=== PATIENT | male | born 1955 | race Caucasian/White ===

== ENCOUNTER 2017-09-09 18:57 | Emergency (ER) | payer MEDICAID ==
[2017-09-09 19:39] LABS: BASOPHILS % (AUTO) 0.8 %; EOSINOPHILS # (AUTO) 0.1 10^3/uL (0.0-0.7); EOSINOPHILS % (AUTO) 1.3 %; HGB - HEMOGLOBIN 14.2 g/dL (14.0-18.0); LYMPHOCYTES # (AUTO) 0.9 10^3/uL (1.5-3.5); LYMPHOCYTES % (AUTO) 17.9 %; MEAN CORPUSCULAR HEMOGLOBIN 29.5 pg (27.0-31.0); MEAN CORPUSCULAR HGB CONC 33.7 g/dL (32.0-36.0); MEAN CORPUSCULAR VOLUME 87.6 fL (80.0-94.0); MEAN PLATELET VOLUME 7.9 fL (7.4-11.4); MONOCYTES # (AUTO) 1.1 10^3/uL (0.0-1.0); MONOCYTES % (AUTO) 21.5 %; NEUTROPHILS # (AUTO) 2.9 10^3/uL (1.5-6.6); NEUTROPHILS % (AUTO) 58.5 %; PLT - PLATELET COUNT 239 10^3/uL (130-450); RED BLOOD COUNT 4.82 10^6/uL (4.70-6.10); RED CELL DISTRIBUTION WIDTH 13.3 % (12.0-15.0)
[2017-09-09 19:43] LABS: ALBUMIN 3.8 g/dL (3.2-5.5); ALBUMIN/GLOBULIN RATIO 1.2 (1.0-2.2); BILIRUBIN,TOTAL 0.5 mg/dL (0.2-1.0); CALCIUM 9.1 mg/dL (8.5-10.3); TOTAL PROTEIN 7.1 g/dL (6.7-8.2)
[2017-09-09] MEDS ORDERED: SODIUM CHLORIDE 0.9% 1,000 ML IV ONE (20:47)
--- NOTE | 2017-09-09 20:51 | ED Physician Documentation ---
History of Present Illness - Stated complaint Stated Complaint: VOMITING/DIARRHEA - Chief complaint Chief Complaint: Abd Pain - History obtained from History obtained from: Patient, Family - History of Present Illness Timing: How many weeks ago (1) Pain level max: 7 Pain level now: 7 Quality: sharp, cramping Improved by: nothing Worsened by: nothing - Additonal information Additional information: Patient is a 62 yo M who has been ill for a week. States feeling weak. Diarrhea x 3 and vomiting x 2 today. Fevers, chills, sweats at night. Review of Systems Ten Systems: 10 systems reviewed and negative Constitutional: reports: Fever, Chills Nose: reports: Rhinorrhea / runny nose, Congestion Throat: denies: Sore throat Respiratory: reports: Cough (dry) GI: reports: Nausea, Vomiting, Diarrhea Skin: denies: Rash Musculoskeletal: denies: Neck pain, Back pain Neurologic: reports: Generalized weakness. denies: Focal weakness, Numbness, Headache PD PAST MEDICAL HISTORY - Past Medical History Past Medical History: Yes Cardiovascular: Hypertension Neuro: None Psych: Anxiety Musculoskeletal: Osteoarthritis, Chronic back pain - Past Surgical History Past Surgical History: No - Present Medications Home Medications: Ambulatory Orders Medication Instructions Recorded Confirmed Propranolol [Inderal] 40 mg PO .FREQ PRN 10/27/14 05/16/16 Ondansetron Odt [Zofran] 4 mg TL Q6H PRN #10 tablet 09/09/17 - Allergies Allergies/Adverse Reactions: Allergies Allergy/AdvReac Type Severity Reaction Status Date / Time hydrocodone AdvReac Nausea Verified 09/09/17 19:18 - Social History Does the pt smoke?: No Smoking Status: Never smoker Does the pt drink ETOH?: No Does the pt have substance abuse?: No - Immunizations Immunizations are current?: Yes PD ED PE NORMAL - Vitals Vital signs reviewed: Yes - General General: Alert and oriented X 3, No acute distress, Well developed/nourished - HEENT HEENT: PERRL, Ears normal, Moist mucous membranes - Neck Neck: Supple, no meningeal sign - Cardiac Cardiac: RRR, Strong equal pulses - Respiratory Respiratory: No respiratory distress, Clear bilaterally - Abdomen Abdomen: Soft, Non distended, Other (diffuse mild TTP, no peritoneal signs.) - Derm Derm: Warm and dry, No rash - Neuro Neuro: Alert and oriented X 3 - Psych Psych: Normal mood, Normal affect Results - Vitals Vitals: Vital Signs - 24 hr 09/09/17 09/09/17 19:14 23:38 Temperature 36.9 C 36.8 C Heart Rate 77 69 Respiratory 20 16 Rate Blood Pressure 110/64 128/72 O2 Saturation 98 99 Oxygen O2 Source Room air - Labs Labs: Laboratory Tests 09/09/17 09/09/17 09/09/17 19:26 19:26 21:48 WBC 5.0 RBC 4.82 Hgb 14.2 Hct 42.2 MCV 87.6 MCH 29.5 MCHC 33.7 RDW 13.3 Plt Count 239 MPV 7.9 Neut # 2.9 Lymph # 0.9 L [place] # 1.1 H Eos # 0.1 Baso # 0.0 Absolute Nucleated RBC 0.02 Nucleated RBC % 0.4 Sodium 141 Potassium 3.4 L Chloride 108 Carbon Dioxide 24 Anion Gap 9.0 BUN 14 Creatinine 1.0 Estimated GFR (MDRD) 75 L Glucose 95 Calcium 9.1 Total Bilirubin 0.5 AST 19 ALT 17 Alkaline Phosphatase 73 Total Protein 7.1 Albumin 3.8 Globulin 3.3 Albumin/Globulin Ratio 1.2 Lipase 16 L Urine Color Urine Clarity Urine pH Ur Specific [place] Urine Protein Urine Glucose (UA) Urine Ketones Urine Occult Blood Urine Nitrite Urine Bilirubin Urine Urobilinogen Ur Leukocyte Esterase Ur Microscopic Review Urine Culture Comments Influenza A (Rapid) Negative Influenza B (Rapid) Negative Influenza Types A,B Ag - 09/09/17 23:00 WBC RBC Hgb Hct MCV MCH MCHC RDW Plt Count MPV Neut # Lymph # [place] # Eos # Baso # Absolute Nucleated RBC Nucleated RBC % Sodium Potassium Chloride Carbon Dioxide Anion Gap BUN Creatinine Estimated GFR (MDRD) Glucose Calcium Total Bilirubin AST ALT Alkaline Phosphatase Total Protein Albumin Globulin Albumin/Globulin Ratio Lipase Urine Color DARK YELLOW Urine Clarity CLEAR Urine pH 6.0 Ur Specific [place] >=1.030 H Urine Protein NEGATIVE Urine Glucose (UA) NEGATIVE Urine Ketones NEGATIVE Urine Occult Blood NEGATIVE Urine Nitrite NEGATIVE Urine Bilirubin NEGATIVE Urine Urobilinogen 0.2 (NORMAL) Ur Leukocyte Esterase NEGATIVE Ur Microscopic Review NOT INDICATED Urine Culture Comments NOT INDICATED Influenza A (Rapid) Influenza B (Rapid) Influenza Types A,B Ag - Rads (name of study) cxr Radiology: Prelim report reviewed, EMP read contemporaneously, See rad report ( normal) PD MEDICAL DECISION MAKING - ED course Complexity details: reviewed results, re-evaluated patient, considered differential (No diverticulitis, no peritoneal signs, no appendicitis, no bowel obstruction or perforation. No sepsis), d/w patient, d/w family ED course: Patient is a 62-year-old gentleman who presents to the emergency department with what appears to be a viral syndrome. Feels much better after Zofran and is tolerating p.o. without difficulty. Drink approximately a liter of water. There was some difficulty establishing an IV and he did not want IV fluids. Abdomen was soft, nontender nondistended on serial exam. As he is tolerating p.o. well and feeling better, will continue supportive care at home and follow- up closely with his doctor. Patient and family counseled regarding signs and symptoms for which I believe and urgent re-evaluation would be necessary. Patient with good understanding of and agreement to plan and is comfortable going home at this time This document was made in part using voice recognition software. While efforts are made to proofread this document, sound alike and grammatical errors may occur. Departure - Departure Disposition: 01 Home, Self Care Clinical Impression: Viral syndrome, Dehydration Condition: Good Instructions: ED Viral Syndrome Follow-Up: Shayla Jaimes ARNP [Primary Care Provider] - Within 3 Days (for recheck) Prescriptions: Ondansetron Odt [Zofran] 4 mg TL Q6H PRN #10 tablet PRN Reason: Nausea / Vomiting Comments: drink plenty of fluids. Return if you worsen. Discharge Date/Time: 09/09/17 23:51
[2017-09-09] MEDS ORDERED: ONDANSETRON 4 MG/2 ML VIAL IVP STA (20:54)
--- NOTE | 2017-09-09 22:18 | XRAY Report ---
EXAM: CHEST RADIOGRAPHY EXAM DATE: 09/09/2017 09:45 PM. CLINICAL HISTORY: Fever, cough. COMPARISON: 05/16/2016 chest x-ray. TECHNIQUE: 2 views. FINDINGS: Lungs/Pleura: No focal opacities evident. No pleural effusion. No pneumothorax. Normal volumes. Mediastinum: Heart and mediastinal contours are unremarkable. Other: None. IMPRESSION: Normal 2-view chest radiography. [facility] Referring Provider Line: [phone] SITE ID: [id number]
--- NOTE | 2017-09-09 22:18 | XRAY Preliminary Report ---
Exam: XR CHEST 2 VIEW X-RAY IMPRESSION: Normal 2-view chest radiography. [facility] SITE ID: [id number]
[2017-09-09 23:09] LABS: BILIRUBIN,URINE NEGATIVE (NEGATIVE); GLUCOSE, URINE (UA) NEGATIVE (NEGATIVE); KETONES,URINE (UA) NEGATIVE (NEGATIVE); LEUKOCYTE ESTERASE, URINE NEGATIVE (NEGATIVE); NITRITE,URINE NEGATIVE (NEGATIVE); OCCULT BLOOD,URINE NEGATIVE (NEGATIVE); PROTEIN,URINE NEGATIVE (NEGATIVE); UROBILINOGEN,URINE 0.2 (NORMAL) E.U./dL (NORMAL)
[2017-09-09 23:25] LABS: CLARITY,URINE CLEAR (CLEAR)
[2017-09-09 23:39] VITALS: BP 128/72
== END 2017-09-09 23:51 | disposition home or self-care (01) ==
LOC: ED 18:57
DX: B34.9 Viral infection, unspecified (principal); E86.0 Dehydration; I10 Essential (primary) hypertension
CPT/HCPCS: 36415; 71046; 80053; 81001; 81003; 83690; 85025; 87086; 87275; 87276; 96361; 96374; 99283; 99284

== ENCOUNTER 2017-09-24 10:17 | Outpatient (CLI) | payer MEDICAID ==
[2017-09-24 12:54] LABS: BASOPHILS # (AUTO) 0.1 10^3/uL (0.0-0.1); BASOPHILS % (AUTO) 0.8 %; EOSINOPHILS # (AUTO) 0.1 10^3/uL (0.0-0.7); EOSINOPHILS % (AUTO) 1.2 %; HGB - HEMOGLOBIN 13.4 g/dL (14.0-18.0); LYMPHOCYTES # (AUTO) 1.2 10^3/uL (1.5-3.5); LYMPHOCYTES % (AUTO) 18.8 %; MEAN CORPUSCULAR HEMOGLOBIN 29.5 pg (27.0-31.0); MEAN CORPUSCULAR HGB CONC 33.1 g/dL (32.0-36.0); MEAN CORPUSCULAR VOLUME 89.1 fL (80.0-94.0); MEAN PLATELET VOLUME 7.8 fL (7.4-11.4); MONOCYTES # (AUTO) 0.6 10^3/uL (0.0-1.0); MONOCYTES % (AUTO) 10.2 %; NEUTROPHILS # (AUTO) 4.3 10^3/uL (1.5-6.6); PLT - PLATELET COUNT 329 10^3/uL (130-450); RED BLOOD COUNT 4.54 10^6/uL (4.70-6.10); RED CELL DISTRIBUTION WIDTH 13.5 % (12.0-15.0); WHITE BLOOD COUNT 6.3 x10^3/uL (4.8-10.8)
[2017-09-24 13:18] LABS: BUN - BLOOD UREA NITROGEN 13 mg/dL (6-20); CALCIUM 8.8 mg/dL (8.5-10.3); CARBON DIOXIDE - CO2 24 mmol/L (21-32); CHLORIDE 105 mmol/L (101-111); CREATININE 0.9 mg/dL (0.6-1.2); GFR - MDRD 85 (>89); GLUCOSE 74 mg/dL (70-100); SODIUM 137 mmol/L (135-145)
[2017-09-24 13:57] LABS: HB2 TOTAL 14.6 g/dL; HEMOGLOBIN A1C 0.49 g/dL; HEMOGLOBIN A1C % 5.2 % (4.6-6.2)
== END 2017-09-24 10:18 | disposition home or self-care (01) ==
LOC: LAB.N 10:17
PROVIDERS: ATTEND Physician Assistant Medical
DX: K43.9 Ventral hernia without obstruction or gangrene (principal); R61 Generalized hyperhidrosis; R53.83 Other fatigue
CPT/HCPCS: 36415; 80048; 83036; 84403; 84443; 85025

== ENCOUNTER 2017-10-19 09:59 | Outpatient (CLI) | payer MEDICAID | END 2017-10-19 10:00 | disposition home or self-care (01) | LOC: RT 09:59 | PROVIDERS: ATTEND Registered Nurse | DX: Z01.810 Encounter for preprocedural cardiovascular examination (principal) | CPT/HCPCS: 93005 ==

== ENCOUNTER 2017-10-26 09:31 | Day surgery (SDC) | payer MEDICAID ==
[2017-10-26] MEDS ORDERED: LACTATED RINGERS 1,000 ML IV ONE ×2 (10:16→12:26)
[2017-10-26] MEDS ORDERED: ceFAZolin 2 GM/50 ML 2 GM/50 ML BAG IV ONE (10:35)
[2017-10-26] MEDS ORDERED: BUPIVACAINE 0.5%-EPI 1:200000 PF 10 ML VIAL ONE ×2 (10:54→10:55)
[2017-10-26] MEDS ORDERED: BUPIVACAINE 0.5%-EPI 1:200000 PF 30 ML VIAL SUBQ ONE ×2 (12:21)
[2017-10-26] MEDS ORDERED: fentaNYL 100 MCG/2 ML VIAL IVP ONE (12:30)
[2017-10-26] MEDS ORDERED: ACETAMINOPHEN 1,000 MG/100 ML 100 ML IV ONE (12:30)
[2017-10-26] MEDS ORDERED: PROPOFOL 200 MG/20 ML VIAL IVP ONE (12:30)
[2017-10-26] MEDS ORDERED: ePHEDrine 50 MG/ML VIAL IVP ONE (12:30)
[2017-10-26] MEDS ORDERED: MIDAZOLAM 2 MG/2 ML VIAL IVP ONE (12:30)
[2017-10-26] MEDS ORDERED: LIDOCAINE-MPF 2% 5 ML VIAL IM ONE (12:30)
[2017-10-26] MEDS ORDERED: ONDANSETRON 4 MG/2 ML VIAL IVP ONE (12:30)
[2017-10-26] MEDS ORDERED: DEXAMETHASONE 4 MG/ML VIAL IVP ONE (12:30)
[2017-10-26 14:11] VITALS: BP 135/68
--- NOTE | 2017-10-26 19:31 | OPERATIVE REPORT ---
DATE OF SERVICE: 10/26/2017 Physician: Osorio Kelley MD PREOPERATIVE DIAGNOSIS: Incarcerated umbilical hernia. POSTOPERATIVE DIAGNOSIS: Incarcerated umbilical hernia. NAME OF PROCEDURE: Repair of incarcerated umbilical hernia. SURGEON: Osorio Kelley MD ANESTHESIA: General. INDICATIONS FOR PROCEDURE: Patient is a 62-year-old male who presents with a bulge at the umbilical area. On physical exam, he has an incarcerated umbilical hernia. FINDINGS AT SURGERY: The patient had an incarcerated umbilical hernia containing preperitoneal fat. It was repaired primarily as the defect was only 1 cm in size. DESCRIPTION OF PROCEDURE: After informed consent was obtained, patient was taken to the operating room and placed in the supine position. General anesthesia was administered. The patient's skin overlying the hernia was then injected with local anesthesia. The hernia was located in the superior portion of the umbilicus. A vertical incision was then made over the hernia using a scalpel. The hernia contents were then identified. The preperitoneal fat was then dissected from the surrounding structures and reduced back into the abdominal cavity. The subcutaneous tissue was then dissected for over a centimeter circumferentially around the fascial defect. The fascial defect was then closed using interrupted 0 Ethibond sutures. The wound was irrigated and hemostasis was obtained using electrocautery. The subcutaneous tissue was closed using 0 Vicryl suture. The skin incision was closed using 4-0 Monocryl subcuticular stitch. Dermabond was then applied. Patient was then awakened, extubated, and taken from the operating room in stable condition. ESTIMATED BLOOD LOSS: Less than 1 mL. COMPLICATIONS: None. CONDITION OF PATIENT AT END OF PROCEDURE: Stable. SPECIMENS: None. DRAINS AND PACKS: None. CLASSIFICATION OF WOUND: Clean. TD: 10/26/2017 19:30
== END 2017-10-26 09:32 | disposition home or self-care (01) ==
LOC: SDS 09:31
PROVIDERS: ATTEND Surgery
PROC: 0WQF0ZZ Repair Abdominal Wall, Open Approach (ICD-10-PCS; principal; 2017-10-26 10:45)
DX: K42.0 Umbilical hernia with obstruction, without gangrene (principal); R00.8 Other abnormalities of heart beat
CPT/HCPCS: 49587; J0131; J0690; J7120

== ENCOUNTER 2018-01-29 20:11 | Outpatient (CLI) | payer MEDICAID ==
--- NOTE | 2018-01-30 08:19 | Ultrasound Report ---
Procedure Date: 01/29/2018 Accession Number: [id number] / [id number] Procedure: US - Testicle CPT Code: FULL RESULT: EXAM: Testicle DATE: 01/29/2018 8:56 PM CLINICAL HISTORY: RT TESTICULAR PAIN AND SWELLING COMPARISON: None. TECHNIQUE: Real-time scanning was performed with static images obtained, including color-flow. FINDINGS: Right: Testis: 4.5 x 2.8 x 3.3 cm. Normal size and echotexture. No mass, calcification, or abnormal blood flow. Epididymis: 4.1 x 2.3 x 3.9 cm due to a 3.4 x 2.2 x 3.0 cm epididymal cyst. No abnormal blood flow. Hydrocele: None. Varicocele: None. Left: Testis: 4.9 x 2.5 x 2.8 cm. Normal size and echotexture. No mass, calcification, or abnormal blood flow. Epididymis: 0.9 x 1.2 x 1.4 cm containing a cyst measuring 0.5 x 0.5 x 0.5 cm. Normal size and echotexture. No solid mass or abnormal blood flow. Hydrocele: None. Varicocele: None. IMPRESSION: There is a 3.4 cm right epididymal head cyst. Testicles themselves are symmetric with no suspicious mass or evidence of torsion. [facility]
== END 2018-01-29 20:12 | disposition home or self-care (01) ==
LOC: DI 20:11
PROVIDERS: ATTEND Physician Assistant Medical
DX: N50.3 Cyst of epididymis (principal)
CPT/HCPCS: 76870

== ENCOUNTER 2018-02-01 09:28 | Day surgery (SDC) | payer MEDICAID ==
--- NOTE | 2018-02-01 08:22 | ANESTHESIA ---
Pre-Anesthesia VS, & Labs - Diagnosis Epigastric hernia - Procedure Repair incarcerated epigastric hernia Height 5 ft 11 in Body Mass Index 25.7 - NPO >8 hours - Is Patient ?: No Home Medications and Allergies Home Medications: Ambulatory Orders Medication Instructions Recorded Confirmed Propranolol [Inderal] 40 mg PO DAILY 10/27/14 01/31/18 Meloxicam 7.5 mg PO BID 10/26/17 01/31/18 Allergies/Adverse Reactions: Allergies Allergy/AdvReac Type Severity Reaction Status Date / Time oxycodone Allergy Nausea Verified 02/01/18 10:13 sumatriptan Allergy Unknown Verified 02/01/18 10:13 gabapentin AdvReac Unknown Verified 02/01/18 10:13 hydrocodone AdvReac Nausea Verified 02/01/18 10:13 Anes History & Medical History - Anesthetic History Anesthesia Complications: reports: No previous complications Family history of Anesthesia Complications: Denies Family history of Malignant Hyperthermia: Denies - Airway/Dental Dental: WNL Mallampati classification: I Thyromental Distance: greater than 6 cm - Medical History Cardiovascular: reports: Hypertension Pulmonary: reports: None Gastrointestinal: reports: GERD Urinary: reports: None Musculoskeletal: reports: Osteoarthritis, Chronic back pain Endocrine/Autoimmune: reports: None Skin: reports: None Smoking Status: Never smoker Psychosocial: reports: Anxiety - Surgical History General: Other (umbilical hernia repair) Results - EKG Results EKG Comparison: Reviewed EKG Exam General: Alert Respiratory: Lungs clear Cardiovascular: Regular rate Mental/Cognitive Status: Alert/Oriented X3 Cognitive Status: Within normal limits Plan Anesthesia Type: General Consent for Operative Procedure(s) Verified and Reviewed: Yes Code Status: Attempt Resuscitation ASA classification: 2-Mild systemic disease Is this case an emergency?: No
[~2018-02-01 09:28] MED LIST: BUPIVACAINE 0.5%-EPI 1:200000 PF 30 ML VIAL ONE
[2018-02-01] MEDS ORDERED: LACTATED RINGERS 1,000 ML IV ONE ×2 (09:42→13:08)
[2018-02-01] MEDS ORDERED: ceFAZolin 2 GM/50 ML 2 GM/50 ML BAG IV ONE (09:51)
[2018-02-01] MEDS ORDERED: PROPOFOL 200 MG/20 ML VIAL IVP ONE (12:45)
[2018-02-01] MEDS ORDERED: ePHEDrine 50 MG/ML VIAL IVP ONE (12:45)
[2018-02-01] MEDS ORDERED: MIDAZOLAM 2 MG/2 ML VIAL IVP ONE (12:45)
[2018-02-01] MEDS ORDERED: DEXAMETHASONE 4 MG/ML VIAL IVP ONE (12:45)
[2018-02-01] MEDS ORDERED: GLYCOPYRROLATE 1 MG/5 ML VIAL IVP ONE (12:45)
[2018-02-01] MEDS ORDERED: LIDOCAINE-MPF 2% 5 ML VIAL IM ONE (12:45)
[2018-02-01] MEDS ORDERED: fentaNYL 100 MCG/2 ML VIAL IVP ONE (12:45)
[2018-02-01] MEDS ORDERED: ONDANSETRON 4 MG/2 ML VIAL IVP ONE (12:45)
[2018-02-01 15:07] VITALS: BP 128/68
--- NOTE | 2018-02-01 16:43 | OPERATIVE REPORT ---
DATE OF SERVICE: 02/01/2018 Physician: Osorio Kelley MD PREOPERATIVE DIAGNOSIS: Incarcerated epigastric hernia. POSTOPERATIVE DIAGNOSIS: Incarcerated epigastric hernia. PROCEDURE PERFORMED: Repair of incarcerated epigastric hernia with mesh. OPERATING SURGEON: Osorio Kelley MD ANESTHESIA: General. INDICATION FOR SURGERY: Patient is a 62-year-old male who presents with a bulge in the epigastric region. PHYSICAL EXAMINATION: He has an incarcerated epigastric hernia. FINDINGS AT SURGERY: Patient had incarcerated epigastric hernia containing preperitoneal fat. A 4.3 cm Ventralex mesh circular was placed in the preperitoneal space. The hernia defect measured approximately 1.5 cm. DESCRIPTION OF PROCEDURE: After informed consent was obtained, the patient was taken to the operating room and placed in the supine position. General anesthesia was administered. The patient's abdomen was then prepped and draped in the usual sterile fashion. An incision was then made over the hernia that was marked on the skin preoperatively. Incision was then carried down the hernia. This was preperitoneal fat. The preperitoneal fat was then dissected free from the surrounding structures and then amputated at the fascial defect. The fascial defect measured approximately 1.5 cm. The deep peritoneum was then dissected circumferentially around the wound for at least 3 cm. A 4.3 cm Ventralex mesh was then placed in the preperitoneal space. Transfascial fixation sutures using 0 PDS sutures were then placed, connecting the mesh to the anterior abdominal wall. The fascial defect was then closed using interrupted 0 PDS suture. The subcutaneous tissue was closed using 3-0 Vicryl suture. The skin was closed using 4-0 Monocryl subcuticular stitch. Dermabond was then placed upon the incision site. The patient was then awakened, extubated, and taken from the operating room in stable condition. ESTIMATED BLOOD LOSS: Less than 5 mL. COMPLICATIONS: None. CONDITION OF THE PATIENT AT END OF PROCEDURE: Stable. SPECIMENS: None. DRAINS AND PACKS: None. CLASSIFICATION OF WOUND: Clean. TD: 02/01/2018 13:34
== END 2018-02-01 09:29 | disposition home or self-care (01) ==
LOC: SDS 09:28
PROVIDERS: ATTEND Surgery
PROC: 0WUF0JZ Supplement Abdominal Wall with Synthetic Substitute, Open Approach (ICD-10-PCS; principal; 2018-02-01 10:45)
DX: K43.9 Ventral hernia without obstruction or gangrene (principal); N50.3 Cyst of epididymis; K40.90 Unilateral inguinal hernia, without obstruction or gangrene, not specified as recurrent; I10 Essential (primary) hypertension
CPT/HCPCS: 49561; 49568; C1781; J0690; J7120

== ENCOUNTER 2022-11-11 00:02 | Emergency (ER) | payer MEDICARE, MEDICAID ==
[2022-11-11 00:54] LABS: BASOPHILS # (AUTO) 0.1 10^3/uL (0.0-0.1); BASOPHILS % (AUTO) 0.8 %; EOSINOPHILS # (AUTO) 0.1 10^3/uL (0.0-0.7); EOSINOPHILS % (AUTO) 1.6 %; HCT - HEMATOCRIT 44.2 % (42.0-52.0); HGB - HEMOGLOBIN 14.5 g/dL (14.0-18.0); LYMPHOCYTES # (AUTO) 1.7 10^3/uL (1.5-3.5); LYMPHOCYTES % (AUTO) 26.5 %; MEAN CORPUSCULAR HEMOGLOBIN 30.1 pg (27.0-31.0); MEAN CORPUSCULAR HGB CONC 32.8 g/dL (32.0-36.0); MEAN CORPUSCULAR VOLUME 91.7 fL (80.0-94.0); MEAN PLATELET VOLUME 9.1 fL (7.4-11.4); MONOCYTES # (AUTO) 0.8 10^3/uL (0.0-1.0); MONOCYTES % (AUTO) 12.5 %; NEUTROPHILS # (AUTO) 3.6 10^3/uL (1.5-6.6); NEUTROPHILS % (AUTO) 58.3 %; PLT - PLATELET COUNT 225 10^3/uL (130-450); RED BLOOD COUNT 4.82 10^6/uL (4.70-6.10); RED CELL DISTRIBUTION WIDTH 13.2 % (12.0-15.0); WHITE BLOOD COUNT 6.2 x10^3/uL (4.8-10.8)
[2022-11-11 01:10] LABS: ALBUMIN 4.3 g/dL (3.2-5.5); ALBUMIN/GLOBULIN RATIO 1.3 (1.0-2.2); BILIRUBIN,TOTAL 0.9 mg/dL (0.2-1.0); CALCIUM 9.5 mg/dL (8.5-10.3); POTASSIUM 4.3 mmol/L (3.5-5.0); TOTAL PROTEIN 7.7 g/dL (6.7-8.2)
[2022-11-11 01:51] LABS: BILIRUBIN,URINE NEGATIVE (NEGATIVE); GLUCOSE, URINE (UA) NEGATIVE (NEGATIVE); KETONES,URINE (UA) NEGATIVE (NEGATIVE); LEUKOCYTE ESTERASE, URINE NEGATIVE (NEGATIVE); NITRITE,URINE NEGATIVE (NEGATIVE); OCCULT BLOOD,URINE NEGATIVE (NEGATIVE); PROTEIN,URINE NEGATIVE (NEGATIVE); UROBILINOGEN,URINE 0.2 (NORMAL) E.U./dL (NORMAL)
--- NOTE | 2022-11-11 01:52 | ED Physician Documentation ---
PD HPI ABD PAIN - Stated complaint Stated Complaint: ABD PAIN - Chief complaint Chief Complaint: Abd Pain - History obtained from History obtained from: Patient - Additional information Additional information: HPI from patient. Patient c/o LLQ abdominal pain radiating to left flank and left lower back, waxing and waning since gradual onset 1 week ago. There were no inciting factors nor event at onset. Denies fever, denies nausea/vomiting. Denies h/o similar symptoms. He was evaluated in outpatient setting recently for these symptoms and was told EKG was s/o "recent heart attack" (per patient). Review of Systems Constitutional: reports: Reviewed and negative Cardiac: reports: Reviewed and negative Respiratory: reports: Reviewed and negative GI: reports: Abdominal Pain. denies: Abdominal Swelling, Nausea, Vomiting, Constipation, Diarrhea, Hematemesis, Bloody / black stool : denies: Dysuria, Frequency, Hematuria Musculoskeletal: reports: Back pain PD PAST MEDICAL HISTORY - Past Medical History Past Medical History: Yes Cardiovascular: Hypertension Psych: Anxiety Musculoskeletal: Osteoarthritis, Chronic back pain - Past Surgical History Past Surgical History: No General: Other - Present Medications Home Medications: Ambulatory Orders Medication Instructions Recorded Confirmed Propranolol [Inderal] 40 mg PO DAILY 10/27/14 11/11/22 - Allergies Allergies/Adverse Reactions: Allergies Allergy/AdvReac Type Severity Reaction Status Date / Time oxycodone Allergy Nausea Verified 02/01/18 10:13 sumatriptan Allergy Unknown Verified 02/01/18 10:13 gabapentin AdvReac Unknown Verified 02/01/18 10:13 hydrocodone AdvReac Nausea Verified 02/01/18 10:13 - Social History Does the pt smoke?: No Smoking Status: Never smoker Does the pt drink ETOH?: No Does the pt have substance abuse?: No - Immunizations Immunizations are current?: Yes - POLST Patient has POLST: No PD ED PE NORMAL - Vitals Vital signs reviewed: Yes - General General: Alert and oriented X 3, No acute distress, Well developed/nourished - Cardiac Cardiac: RRR, No murmur, No gallop, No rub - Respiratory Respiratory: No respiratory distress, Clear bilaterally - Abdomen Abdomen: Normal bowel sounds, Soft, Non tender, Non distended - Back Back: No CVA TTP - Extremities Extremities: No edema Results - Vitals Vitals: Oxygen O2 Source Room air - EKG (time done) No standard instances EKG releavant findings:: EKG personally interpreted by author of this note. Relevant findings are: Rate: Rate (enter#) (48) Rhythm: Sinus bradycardia [place]: Normal Intervals: Normal ID QRS: Normal Ischemia: Normal ST segments, Q waves (isolated QIII) - Labs Labs: Laboratory Tests 11/11/22 11/11/22 11/11/22 00:50 00:50 01:42 WBC 6.2 RBC 4.82 Hgb 14.5 Hct 44.2 MCV 91.7 MCH 30.1 MCHC 32.8 RDW 13.2 Plt Count 225 MPV 9.1 Neut # (Auto) 3.6 Lymph # (Auto) 1.7 [place] # (Auto) 0.8 Eos # (Auto) 0.1 Baso # (Auto) 0.1 Absolute Nucleated RBC 0.00 Nucleated RBC % 0.0 Sodium 140 Potassium 4.3 Chloride 105 Carbon Dioxide 25 Anion Gap 10.0 BUN 20 Creatinine 1.0 Estimated GFR (MDRD) 74 L Glucose 79 Calcium 9.5 Total Bilirubin 0.9 AST 22 ALT 19 Alkaline Phosphatase 80 Total Protein 7.7 Albumin 4.3 Globulin 3.4 Albumin/Globulin Ratio 1.3 Lipase 50 Urine Color YELLOW Urine Clarity CLEAR Urine pH 6.0 Ur Specific [place] 1.020 Urine Protein NEGATIVE Urine Glucose (UA) NEGATIVE Urine Ketones NEGATIVE Urine Occult Blood NEGATIVE Urine Nitrite NEGATIVE Urine Bilirubin NEGATIVE Urine Urobilinogen 0.2 (NORMAL) Ur Leukocyte Esterase NEGATIVE Ur Microscopic Review NOT INDICATED Urine Culture Comments NOT INDICATED - Rads (name of study) CT A/P Relevant Findings:: Prelim report reviewed, See rad report PD Medical Decision Making - ED course Complexity details: reviewed results, re-evaluated patient, considered differential, d/w patient ED course: No concerning nor diagnostic findings on tonight's tests including blood tests, EKG, CT A/P. Normal CBC, ER abdominal panel, UA. Chronic findings on CT A/P include hepatic cysts, right renal scarring. No significant change or new findings when compared to previous study (2016). Etiology of patient's symptoms is not apparent at this time. Results d/w patient, return precautions discussed. Departure - Departure Disposition: 01 Home, Self Care Clinical Impression: Abdominal pain Qualifiers: Abdominal location: left lower quadrant Qualified Code(s): R10.32 - Left lower quadrant pain Condition: Good Instructions: ED Abdominal Pain Unkn Cause Male Comments: There are no concerning nor diagnostic findings on tonight's test, including the blood test, urinalysis, and the CT scan of your abdomen and pelvis. Cause of your pain is not apparent at this time, but further emergent testing is not indicated (unlikely to reveal or suggested diagnosis). Certainly, if your symptoms worsen in any way, or if you develop new/concerning signs/symptoms (such as fever, blood in the stool, worsening pain, abdominal distention, vomiting), you can return to the emergency department for reevaluation. Otherwise, I recommend that you contact your primary care provider on Sunday when the office opens to arrange for next available appointment. Discharge Date/Time: 11/11/22 05:16
[2022-11-11 01:53] LABS: CLARITY,URINE CLEAR (CLEAR)
[2022-11-11] MEDS ORDERED: iohexoL-300 100 ML VIAL ONE (02:44)
[2022-11-11] MEDS ORDERED: iohexoL-300 100 ML VIAL IVP ONE (03:14)
[2022-11-11 05:16] VITALS: BP 118/78
--- NOTE | 2022-11-11 08:18 | CT Report ---
PROCEDURE: ABDOMEN/PELVIS W INDICATIONS: LUQ pain radiating to back CONTRAST: 100 ML OMNI 300 TECHNIQUE: After the administration of IV contrast, 5 mm thick sections acquired from the diaphragms to the symp hysis. 5 mm thick coronal and sagittal reformats were acquired. For radiation dose reduction, the f ollowing was used: automated exposure control, adjustment of mA and/or kV according to patient size. COMPARISON: CT abdomen and pelvis 05/16/2016 FINDINGS: Image quality: Excellent. Lung bases and heart: Unremarkable. Liver: Scattered hepatic low-attenuation foci unchanged compared to prior exam. Gallbladder and biliary tree: Spleen: No splenomegaly. Pancreas: No pancreatic ductal dilation. Adrenals: No adrenal nodule. Kidneys and ureters: No hydronephrosis. No renal cystic lesion which requires follow up. No solid mas s. Scarring versus postsurgical changes noted along the cortex of the right kidney, unchanged. Asymme tric right renal atrophy is again noted Bowel and peritoneum: No bowel distension. No pathologic free fluid. Moderate colonic stool. Lymph nodes: No central or retroperitoneal adenopathy. Vessels: No infrarenal aortic aneurysm. PELVIS Pelvic organs: No visualized abnormality. Incidental note of the prostate gland is enlarged. Bladder: No abnormal wall thickening, accounting for underdistension. Pelvic lymph nodes: No pelvic adenopathy by size criteria. Bones: No aggressive osseous abnormality. Other: No significant ventral or inguinal hernia. IMPRESSION: No acute intra-abdominal or pelvic process. Constipation without obstruction. Reviewed by: Fiordaliza Shay MD on 11/11/2022 8:16 AM PDT Approved by: Fiordaliza Shay MD on 11/11/2022 8:16 AM PDT Station ID: [id number]
== END 2022-11-11 05:16 | disposition home or self-care (01) ==
LOC: ED 00:02
DX: R10.32 Left lower quadrant pain (principal); I10 Essential (primary) hypertension
CPT/HCPCS: 36415; 74177; 80053; 81003; 83690; 85025; 93005; 99283; 99284; Q9967; 81001; 87086

== ENCOUNTER 2023-11-16 10:36 | Outpatient (CLI) | payer MEDICARE, MEDICAID ==
--- NOTE | 2023-11-16 12:15 | MRI Report ---
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 COMPARISON: Cervical spine plain films dated 08/10/2023. FINDINGS: Image quality: Excellent. Alignment and Curvature: There is normal bony alignment. Bone Marrow: Marrow demonstrates normal overall signal. Spinal Cord: Visualized spinal cord has normal size and signal. No cerebellar tonsillar herniation. Paraspinous Soft Tissues: No paravertebral masses. Prevertebral soft tissues are normal in thicknes s. C2-C3: Mild central posterior disc protrusion abuts the ventral cord. No canal stenosis. AP diameter of the central canal stenosis 12.0 mm. Mild bilateral foraminal stenosis. C3-C4: Mild to moderate broad-based posterior disc protrusion mildly indents on the cord. There is posterior ligamentous hypertrophy. There is moderate central canal stenosis. AP diameter of the centr al canal measures 8.9 mm. Reference axial image 13 of series 4. There is bilateral facet hypertrophy. There is bilateral uncovertebral joint hypertrophy. There is moderate bilateral foraminal narrowing with flattening deformity on the exiting bilateral C4 nerve roots. C4-C5: Diffuse posterior disc bulge with indentation on the ventral cord. Posterior ligamentous hype rtrophy. Moderate canal stenosis. AP diameter of the central canal measures 8.8 mm. Reference axial i mage 19 of series 4. There is bilateral facet hypertrophy. There is moderate to severe bilateral fora michael narrowing with a degree of bilateral foraminal C5 nerve root impingement. C5-C6: Prominent anterior osteophyte is incidentally noted. Posterior disc bulge, eccentric to the r ight with mild indentation on the ventral cord. Mild canal stenosis. AP diameter of the central canal is 9.4 mm. Bilateral uncovertebral joint hypertrophy. Mild right foraminal narrowing. Moderate left foraminal narrowing. There is mild flattening deformity on the exiting left C6 nerve root. C6-C7: Prominent anterior osteophyte noted. Mild disc bulge. No canal stenosis. AP diameter of the c entral canal measures 12.0 mm. No significant foraminal narrowing. C7-T1: No canal stenosis or foraminal stenosis. IMPRESSION: 1. Diffuse cervical spondylitic change. 2. Canal stenosis is moderate at C3-C4 and C4-C5. It is mild at C5-C6. 3. Multilevel foraminal narrowing as described above. Findings include moderate bilateral foraminal n arrowing at C3-C4, moderate to severe bilateral foraminal narrowing at C4-C5, and moderate left shruti inal narrowing at C5-C6. Reviewed by: Raheel Young MD on 11/16/2023 12:14 PM PDT Approved by: Raheel Young MD on 11/16/2023 12:14 PM PDT Station ID: [id number]
== END 2023-11-16 10:37 | disposition home or self-care (01) ==
LOC: DI 10:36
PROVIDERS: ATTEND Internal Medicine
DX: M99.51 Intervertebral disc stenosis of neural canal of cervical region (principal); M47.812 Spondylosis without myelopathy or radiculopathy, cervical region

== ENCOUNTER 2024-01-21 01:23 | Outpatient (CLI) | payer MEDICARE, MEDICAID | END 2024-01-21 23:59 | disposition critical access hospital (66) | LOC: EMS 01:23 | DX: R53.1 Weakness (principal) | CPT/HCPCS: A0425; A0429 ==

== ENCOUNTER 2024-01-21 01:58 | Emergency (ER) | payer MEDICARE, MEDICAID ==
[2024-01-21] MEDS: SODIUM CHLORIDE 0.9% 1,000 ML IV STA (02:20)
[2024-01-21 02:45] LABS: BASOPHILS % (AUTO) 0.6 %; EOSINOPHILS # (AUTO) 0.1 10^3/uL (0.0-0.7); HCT - HEMATOCRIT 39.3 % (42.0-52.0); HGB - HEMOGLOBIN 12.6 g/dL (14.0-18.0); LYMPHOCYTES # (AUTO) 1.2 10^3/uL (1.5-3.5); LYMPHOCYTES % (AUTO) 17.7 %; MEAN CORPUSCULAR HEMOGLOBIN 29.2 pg (27.0-31.0); MEAN CORPUSCULAR HGB CONC 32.1 g/dL (32.0-36.0); MEAN PLATELET VOLUME 9.2 fL (7.4-11.4); MONOCYTES # (AUTO) 0.6 10^3/uL (0.0-1.0); MONOCYTES % (AUTO) 8.6 %; NEUTROPHILS # (AUTO) 4.8 10^3/uL (1.5-6.6); NEUTROPHILS % (AUTO) 71.7 %; PLT - PLATELET COUNT 193 10^3/uL (130-450); RED BLOOD COUNT 4.32 10^6/uL (4.70-6.10); RED CELL DISTRIBUTION WIDTH 13.4 % (12.0-15.0); WHITE BLOOD COUNT 6.7 x10^3/uL (4.8-10.8)
[2024-01-21 02:59] LABS: ALBUMIN 3.7 g/dL (3.2-5.5); ALBUMIN/GLOBULIN RATIO 1.4 (1.0-2.2); BILIRUBIN,TOTAL 0.4 mg/dL (0.2-1.0); CALCIUM 9.2 mg/dL (8.5-10.3); CREATININE 0.9 mg/dL (0.6-1.3); TOTAL PROTEIN 6.4 g/dL (6.4-8.9)
--- NOTE | 2024-01-21 03:04 | ED Physician Documentation ---
History of Present Illness - Stated complaint Stated Complaint: L LEG WEAKNESS - Chief complaint Chief Complaint: Neuro - History obtained from History obtained from: Patient, EMS - Additonal information Additional information: The patient is brought to the emergency department by EMS for chief complaint of "feeling strange". He states he went to bed feeling fine last night but he woke up in the night feeling as though he was in a state of weakness. He states that he thought that perhaps his heart or breathing had stopped so he got up out of bed to go tell his roommate that his heart had stopped. He states that he felt somewhat generally weak but that his left leg felt tingly/numb. The patient was able to ambulate without difficulty and denies any trouble speaking or swallowing. He states that he was sitting on his roommates bed and talking throughout what was going on and she felt that he should come to the hospital. She called EMS and the patient decided that since he has dogs, he would ambulate out to meet the ambulance. The patient states that he went out the door and began walking down his long driveway until EMS pulled in. Medics state that the patient was noted to be walking with a slight limp on the left but did not appear weak. They found no weakness whatsoever on exam. The patient denies recent illnesses. No other complaints at this time. He states he is otherwise fairly healthy. No history of stroke. PD PAST MEDICAL HISTORY - Past Medical History Cardiovascular: Hypertension Psych: Anxiety Musculoskeletal: Osteoarthritis, Chronic back pain - Past Surgical History Past Surgical History: No General: Other - Present Medications Home Medications: Ambulatory Orders Medication Instructions Recorded Confirmed Propranolol [Inderal] 40 mg PO DAILY 10/27/14 01/21/24 - Allergies Allergies/Adverse Reactions: Allergies Allergy/AdvReac Type Severity Reaction Status Date / Time oxycodone Allergy Nausea Verified 01/21/24 02:02 sumatriptan Allergy Unknown Verified 01/21/24 02:02 gabapentin AdvReac Unknown Verified 01/21/24 02:02 hydrocodone AdvReac Nausea Verified 01/21/24 02:02 - Social History Does the pt smoke?: No Smoking Status: Never smoker Does the pt drink ETOH?: No Does the pt have substance abuse?: No - Immunizations Immunizations are current?: Yes - POLST Patient has POLST: No PD ED PE NORMAL - Vitals Vital signs reviewed: Yes - General General: Alert and oriented X 3, No acute distress, Well developed/nourished - HEENT HEENT: Atraumatic, PERRL, EOMI, Moist mucous membranes - Neck Neck: Supple, no meningeal sign - Cardiac Cardiac: RRR, No murmur - Respiratory Respiratory: No respiratory distress, Clear bilaterally - Abdomen Abdomen: Soft, Non tender, Non distended - Derm Derm: Normal color, Warm and dry, No rash - Extremities Extremities: No deformity, No edema, No calf tenderness / cord - Neuro Neuro: Alert and oriented X 3, 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 Relevant findings are: Rate: Rate (enter#) (55) Rhythm: NSR, Other (PACs) [place]: Normal Intervals: Prolonged NV (Mildly) Ischemia: Normal ST segments Compare to prior EKG: Old EKG unavailable Computer interpretation: Agree with computer - Labs Labs: Laboratory Tests 01/21/24 01/21/24 02:37 02:37 WBC 6.7 RBC 4.32 L Hgb 12.6 L Hct 39.3 L MCV 91.0 MCH 29.2 MCHC 32.1 RDW 13.4 Plt Count 193 MPV 9.2 Neut # (Auto) 4.8 Lymph # (Auto) 1.2 L [place] # (Auto) 0.6 Eos # (Auto) 0.1 Baso # (Auto) 0.0 Absolute Nucleated RBC 0.00 Nucleated RBC % 0.0 Sodium 138 Potassium 4.0 Chloride 108 Carbon Dioxide 24 Anion Gap 6.0 BUN 20 Creatinine 0.9 Estimated GFR (MDRD) 84 L Glucose 96 Calcium 9.2 Total Bilirubin 0.4 AST 16 ALT 13 Alkaline Phosphatase 75 Total Protein 6.4 Albumin 3.7 Globulin 2.7 Albumin/Globulin Ratio 1.4 Lipase 33 - Rads (name of study) Head CT Relevant Findings:: Final report received, See rad report (Negative) PD Medical Decision Making - ED course Complexity details: reviewed results, re-evaluated patient, considered differential, d/w patient ED course: The patient gave a fairly clear history though had a fixation with the idea that his heart had stopped needed in the ED. He was quite emotionally labile and wanted to know where his dog was began crying and fixating on the dog in the ED. He required multiple attempts at redirection before finally becoming calm and answering questions again. It was not clear if the patient had had any actual weakness or not as his description was somewhat vague and despite my attempts to try to pin him down on exactly what kind of symptoms he had, he could not be more specific. His examination was negative in the ED. The patient had complained of a generally weak feeling and then also noticed a change in sensation on the left side, and so was sent for CT scan of the head, which was negative. Laboratory studies were also unremarkable. The patient was ambulatory in the emergency department without difficulty and I felt he was stable for discharge home. We have discussed the need for follow-up and we have also discussed the usual indications for return, should the patient have any f ocal weakness. Departure - Departure Disposition: 01 Home, Self Care Clinical Impression: Paresthesias, Feeling weak Condition: Stable Instructions: ED Weakness UKO, ED Paraesthesias Comments: Extensive workup including labs, EKG, and CT scan of the head, have all been reassuring. It is not clear why you felt as though your heart had stopped but it very definitely did not. Additionally, you were not found to have any weakn ess on exam and we have not found any evidence of stroke. It is important that you follow-up with your primary doctor for further concerns. Forms: PCP List Discharge Date/Time: 01/21/24 03:44
[2024-01-21 03:47] VITALS: BP 129/74; O2SAT 98
--- NOTE | 2024-01-21 07:28 | CT Report ---
PROCEDURE: Head WO INDICATIONS: L side weakness TECHNIQUE: Noncontrast 4.5 mm thick angled axial sections acquired from the foramen magnum to the vertex. For r adiation dose reduction, the following was used: automated exposure control, adjustment of mA and/or kV according to patient size. COMPARISON: None. FINDINGS: Image quality: Diagnostic. CSF spaces: Basal cisterns are patent. No extra-axial fluid collections. Ventricles are normal in size and shape. Brain: No midline shift. No intracranial masses or hemorrhage. No mass effect. Lamas-white matter i nterface is normal. There cerebral volume loss for age with resultant ventricular and sulcal prominen ce. There are periventricular and deep white matter chronic small vessel ischemic changes. Atheroscle rotic calcifications are noted in the intracranial segments of the bilateral internal carotid arterie s. Skull and face: Calvarium and visualized facial bones are intact, without suspicious lesions. Sinuses: Visualized sinuses and mastoids are clear. IMPRESSION: No acute intracranial pathology. Age-related senescent changes and sequela of chronic small vessel ischemic disease. If there is high clinical concern for acute cerebral infarction/ischemia, further evaluation with MRI can be considered. No significant discrepancy with initial interpretation by overnight radiologist. Reviewed by: Peter Johnstno MD on 01/21/2024 7:27 AM PDT Approved by: Peter Johnston MD on 01/21/2024 7:27 AM PDT Station ID: [id number]
== END 2024-01-21 03:44 | disposition home or self-care (01) ==
LOC: EDUNIT# → ED 01:58
DX: R53.1 Weakness (principal); R20.2 Paresthesia of skin
CPT/HCPCS: 36415; 80053; 83690; 85025; 93005; 99283; 99284